=== PATIENT | male | born 1975 | race Hispanic/Latino ===

== ENCOUNTER 2017-01-04 21:18 | Emergency (ER) | payer BC ==
[2017-01-04 21:24] VITALS: BP 129/75; PULSE 80; RESP 16; TEMP 97.2; O2SAT 96
--- NOTE | 2017-01-04 21:38 | ED PDOC ---
HPI: Wound Care - HPI Time Seen by Provider: 01/04/17 21:24 Chief Complaint (Nursing): Wound Check Chief Complaint (Provider): Wound Check History Per: Patient History Of Present Illness: Real is a 41 y/o male who states he had a lower lip biopsy done 5 hours ago by his ENT Dr. Bill Carver, and had two stitches placed. This evening, he noticed stitches came out, prompting ED visit. Offers no further complaints at this time. PMD: Rick Herrera Exam Limitations: no limitations Onset/Duration Of Symptoms: Mins (prior to arrival) Current Symptoms Are (Timing): Still Present Past Medical History Reviewed: Historical Data, Nursing Documentation, Vital Signs Vital Signs: Last Vital Signs Temp 97.2 F L 01/04/17 21:21 Pulse 80 01/04/17 21:21 Resp 16 01/04/17 21:21 BP 129/75 01/04/17 21:21 Pulse Ox 96 01/04/17 21:21 - Surgical History Other surgeries: Lip biopsy - Family History Family History: States: Unknown Family Hx - Allergies Allergies/Adverse Reactions: Allergies Allergy/AdvReac Type Severity Reaction Status Date / Time clarithromycin [From Biaxin] Allergy ANGIOEDEMA Verified 01/04/17 21:21 metoclopramide [From Reglan] Allergy ANGIOEDEMA Verified 01/04/17 21:21 Review of Systems ROS Statement: Except As Marked, All Systems Reviewed And Found Negative Skin: Positive for: Other (Stitches loose at lower lip) Physical Exam - Reviewed Nursing Documentation Reviewed: Yes Vital Signs Reviewed: Yes - Physical Exam Appears: Positive for: Well, Non-toxic, No Acute Distress Head Exam: Positive for: ATRAUMATIC, NORMAL INSPECTION, NORMOCEPHALIC Skin: Positive for: Normal Color, Warm, Dry Eye Exam: Positive for: EOMI, Normal appearance, PERRL ENT: Positive for: Other (0.5 cm non-gaping superficial laceration on the inner lower lip, no active bleeding and no swelling.) Neck: Positive for: Normal, Painless ROM, Supple Extremity: Positive for: Normal ROM. Negative for: Deformity Neurologic/Psych: Positive for: Alert, Oriented - ECG O2 Sat by Pulse Oximetry: 96 (RA) Pulse Ox Interpretation: Normal - Progress ED Course And Treament: Case d/w Dr. Schaeffer, covering for Dr. Bill Carver, who states wound can be closed with absorbable sutures and pt. can f/u as scheduled. Procedure: Wound Repair - Time Performed Time Performed: 21:55 - Time Out Time Out: Side verified, Site verified, Patient ID confirmed, Sterile procedures obs. - Procedure Procedure: Wound Repair: Laceration repair - Consent Obtained Consent obtained: Emergent consent implied - Performed by Performed by: Mid-level Provider (Jono) - Indications Indication(s):: Laceration - Location Location:: Right (inner lower lip) Dimensions Length cm: 1 Dimensions width cm: <0.5cm Depth:: Epidermis - Irrigated Irrigated with ml of normal saline: 100 - Complexity Complexity:: Simple (one layer) - Wound repair method Sutures:: # (1), Size (5-0), Type (monocryl), Technique (simple) Medical Decision Making Medical Decision Making: Time: 21:35 Initial Plan: --Placed call to ENT, Dr. Bill Carver Scribe Attestation: Documented by Bridgette Melchor, acting as a scribe for Fletcher De La Cruz PA-C Provider Scribe Attestation: All medical record entries made by the Scribe were at my direction and personally dictated by me. I have reviewed the chart and agree that the record accurately reflects my personal performance of the history, physical exam, medical decision making, and the department course for this patient. I have also personally directed, reviewed, and agree with the discharge instructions and disposition. Disposition - Clinical Impression Clinical Impression: Wound dehiscence - Patient ED Disposition Is Patient to be Admitted: No - Disposition Disposition: Routine/Home Disposition Time: 21:58 Condition: STABLE Additional Instructions: Follow up with Dr. Carver as previously scheduled without fail. Instructions: Care For Your Absorbable Stitches (ED) Forms: [employer] ([place])
== END 2017-01-04 22:15 | disposition home or self-care (01) ==
LOC: H.ER 21:18
DX: Z48.01 Encounter for change or removal of surgical wound dressing (principal)

== ENCOUNTER 2017-02-20 19:20 | Emergency (ER) | payer BC ==
[2017-02-20 19:31] VITALS: BP 124/73; PULSE 62; RESP 16; TEMP 97.8; O2SAT 97
--- NOTE | 2017-02-20 20:38 | ED PDOC ---
Upper Extremity Pain/Injury Time Seen by Provider: 02/20/17 20:26 Chief Complaint (Nursing): Abnormal Skin Integrity Chief Complaint (Provider): Left Finger Laceration History Per: Patient History/Exam Limitations: no limitations Onset/Duration Of Symptoms: Hrs (x 2) Current Symptoms Are (Timing): Still Present Additional Complaint(s): 41yo male, presents to the ED for evaluation of laceration on his left 3rd digit , sustained 1 hour prior to arrival. Patient states he accidentally cut himself with a knife while attempting to open up a box. Of note, patient states his tetanus is not up to date. PMD: No Provider Provided Past Medical History Reviewed: Historical Data, Nursing Documentation, Vital Signs Vital Signs: Last Vital Signs Temp 97.8 F 02/20/17 19:29 Pulse 62 02/20/17 19:29 Resp 16 02/20/17 19:29 BP 124/73 02/20/17 19:29 Pulse Ox 97 02/20/17 19:29 - Medical History PMH: No Chronic Diseases - Surgical History Surgical History: No Surg Hx - Family History Family History: States: No Known Family Hx - Immunization History Hx Tetanus Toxoid Vaccination: No Hx Influenza Vaccination: No Hx Pneumococcal Vaccination: No - Home Medications Home Medications: Ambulatory Orders Medication Instructions Recorded Cephalexin [Keflex] 500 mg PO BID #14 capsule 02/20/17 - Allergies Allergies/Adverse Reactions: Allergies Allergy/AdvReac Type Severity Reaction Status Date / Time clarithromycin [From Biaxin] Allergy ANGIOEDEMA Verified 02/20/17 19:29 metoclopramide [From Reglan] Allergy ANGIOEDEMA Verified 02/20/17 19:29 Review of Systems Musculoskeletal: Positive for: Hand Pain (Left 3rd digit Laceration) Physical Exam - Reviewed Nursing Documentation Reviewed: Yes Vital Signs Reviewed: Yes - Physical Exam Appears: Positive for: Non-toxic, No Acute Distress Head Exam: Positive for: ATRAUMATIC, NORMAL INSPECTION, NORMOCEPHALIC Skin: Positive for: Normal Color Eye Exam: Positive for: Normal appearance Neck: Positive for: Normal Respiratory: Negative for: Respiratory Distress Extremity: Positive for: Normal ROM, Capillary Refill (less than 2 seconds), Other (0.5 cm laceration noted to medial nailbed of left 3rd digit; no active bleeding). Negative for: Deformity, Swelling Neurologic/Psych: Positive for: Alert, Oriented - ECG O2 Sat by Pulse Oximetry: 97 (RA) Pulse Ox Interpretation: Normal Medical Decision Making Medical Decision Making: Time: 20:32 Impression: Laceration on left 3rd digit Plan: - Adacel 0.5 ml IM - Dermabond; see procedure note for wound repair Scribe Attestation: Documented by Raymon Covarrubias, acting as a scribe for Katelin Hemphill PA-C Provider Scribe Attestation: All medical record entries made by the Scribe were at my direction and personally dictated by me. I have reviewed the chart and agree that the record accurately reflects my personal performance of the history, physical exam, medical decision making, and the department course for this patient. I have also personally directed, reviewed, and agree with the discharge instructions and disposition. Procedures - Laceration/Wound Repair left 3rd digit Wound Length (cm): 0.5 Wound's Depth, Shape: linear Wound Explored: clean Wound Repaired With: Skin adhesive Wound Complexity: Simple Sterile Dressing Applied?: Yes Progress: Patient tolerated procedure well. Disposition - Clinical Impression Clinical Impression: Finger laceration, Tetanus toxoid vaccination administered at current visit - Patient ED Disposition Is Patient to be Admitted: No Counseled Patient/Family Regarding: Diagnosis, Need For Followup, Rx Given - Disposition Disposition: Routine/Home Disposition Time: 21:21 Condition: GOOD Additional Instructions: Antibiotics only if wound infected. Prescriptions: Cephalexin [Keflex] 500 mg PO BID #14 capsule Instructions: Skin Adhesive Care (ED) Forms: [employer] ([place])
== END 2017-02-20 21:35 | disposition home or self-care (01) ==
LOC: H.ER 19:20
DX: S61.203A Unspecified open wound of left middle finger without damage to nail, initial encounter (principal); W26.0XXA Contact with knife, initial encounter; Y92.89 Other specified places as the place of occurrence of the external cause